=== PATIENT | male | born 1980 | race Caucasian/White ===

== ENCOUNTER 2021-09-09 14:51 | Observation (INO) | payer OTHER, SELFPAY ==
[2021-09-09] VITALS (18 sets, daily range): BP systolic 98–144; BP diastolic 56–100; PULSE 76–101; RESP 17–31; TEMP 36.6–37.4; O2SAT 97–100; BMI 36.1; BMI 35.1
--- NOTE | 2021-09-09 15:03 | DI.CT.S_ITS ---
PROCEDURE: CT HEAD/BRAIN WO CON INDICATIONS: fall, +LOC, hit head TECHNIQUE: Noncontrast 4.5 mm thick angled axial sections acquired from the foramen magnum to the vertex, with coronal and sagittal reformats. For radiation dose reduction, the following was used: automated exposure control, adjustment of mA and/or kV according to patient size. COMPARISON: [facility], CR, XR CHEST 1V, 09/09/2021, 15:07. [facility], CT, CT CERVICAL SPINE WO CON, 09/09/2021, 15:14. FINDINGS: Image quality: Mild streak artifact can be seen through the skull base. CSF spaces: Basal cisterns are patent. No extra-axial fluid collections. Ventricles are normal in size and shape. Brain: No midline shift. No intracranial masses or hemorrhage. [place]aca-white matter interface is normal. Skull and face: Calvarium and visualized facial bones are intact, without suspicious lesions. Sinuses: Visualized sinuses and mastoids are clear. IMPRESSION: No acute intracranial process is seen. No acute intracranial hemorrhage is seen. Dictated by: Tashi Pablo M.D. on 09/09/2021 at 14:45 Approved by: Tashi Pablo M.D. on 09/09/2021 at 14:46
--- NOTE | 2021-09-09 15:03 | DI.CT.S_ITS ---
PROCEDURE: CT CERVICAL SPINE WO CON INDICATIONS: fall, +LOC, hit head TECHNIQUE: Noncontrast 3 mm thick sections acquired from the skull base to the T4 level. Sagittal and coronal reformats were then constructed. For radiation dose reduction, the following was used: automated exposure control, adjustment of mA and/or kV according to patient size. COMPARISON: [facility], CR, SPINE CERVICAL 2 OR 3VW, 09/21/2016, 16:01. [facility], CR, XR CHEST 1V, 09/09/2021, 15:07. [facility], CT, CT HEAD/BRAIN WO CON, 09/09/2021, 15:14. FINDINGS: Image quality: This examination is somewhat limited by quantum mottle artifact. Bones: No fractures or dislocations. Visualized superior ribs are intact. Soft tissues: Prevertebral soft tissues are normal in thickness. No paravertebral hematomas. No apical pneumothoraces. IMPRESSION: Negative for fracture. Dictated by: Tashi Pablo M.D. on 09/09/2021 at 14:44 Approved by: Tashi Pablo M.D. on 09/09/2021 at 14:45
--- NOTE | 2021-09-09 15:03 | DI.RAD.S_ITS ---
PROCEDURE: XR CHEST 1V INDICATIONS: fall, +LOC, hit head TECHNIQUE: One view of the chest was acquired. COMPARISON: None. FINDINGS: Surgical changes and devices: None. Lungs and pleura: Lungs are clear. No pleural effusions or pneumothorax. Mediastinum: Mediastinal contours appear normal. Heart size is normal. Bones and chest wall: No suspicious bony lesions. Overlying soft tissues appear unremarkable. IMPRESSION: No acute cardiopulmonary abnormality. Dictated by: Francisco Baker M.D. on 09/09/2021 at 16:00 Approved by: Francisco Baker M.D. on 09/09/2021 at 16:01
--- NOTE | 2021-09-09 15:05 | ED_ITS ---
HPI - Trauma General Chief Complaint: Trauma Stated Complaint: Fall backward 5 ft,+LOC,no thinners Time Seen by Provider: 09/09/21 14:53 Source: patient and EMS Mode of arrival: EMS History of Present Illness HPI narrative: This is a 41-year-old male who was at work. 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 Patient had a several minute loss of consciousness that was witnessed by coworkers. Patient has been repetitive with EMS. He has complaint of nausea, pain in the back of the head and neck. They did not appreciate any obvious wounds or lacerations. Patient denies chest pain or shortness of breath, he denies any hip or pelvic pain, no pain, numbness or tingling extremities. He has not any vomiting so far. He had 8 mg total Zofran in route. No loss of bowel or bladder control. Patient states he does not recall the event, he does not recall how he arrived here the emergency department. He has trouble remembering the year. He states he should know these things but does not. He is unsure if he takes medications but per EMS takes Provigil some days, no known anticoagulants, patient is unsure if prior surgeries. No known drug allergies documented in the EMR. Patient denies tobacco, he states occasional alcohol but not typically before work, no illicit. Related Data Home Medications Medication Instructions Recorded Confirmed lisinopril PO DAILY 12/23/20 01/30/21 Respironics [employer] 01/30/21 01/30/21 Previous Rx's Medication Instructions Recorded modafinil 200 mg tablet 200 mg PO DAILY #30 tab 07/15/21 Allergies Allergy/AdvReac Type Severity Reaction Status Date / Time No Known Drug Allergies Allergy Verified 01/30/21 14:38 Review of Systems Review of Systems ROS Unobtainable: All systems reviewed & are unremarkable except as noted in HPI and below Patient History Medical History Allergic conjunctivitis and rhinitis (~08/05/16) Chronic right shoulder pain (08/05/16) Depression (08/05/16) Essential hypertension (08/05/16) Excessive daytime sleepiness 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 Obesity (BMI 30-39.9) Obstructive sleep apnea syndrome (2013) Pure hypercholesterolemia (08/05/16) Surgical History H/O splenectomy History of nasal septoplasty Family History Family/Other Dementia Alcohol abuse Father Substance abuse Mother Depression Substance abuse Social History marital status: details: lives in [place] household members: family caregiver/support person: No housing: house occupational status: employed Previous occupational history: [employer] Smoking Status: Never smoker alcohol intake: current substance use type: does not use Smoking Status: Never smoker Exam Narrative Exam Narrative: GEN: C-collar prior to arrival, backboard. Patient appears in mild distress. HEAD: No evidence of trauma, no raccoon/Romero sign. NECK: Nontender, painless range of motion, trachea midline For Nexus criteria, there is no mid line tenderness, distracting injury, positive for altered mental status-patient is repetitive, neuro deficit, recent EtOH. EYES: PERRLA, EOMI ENT: External inspection normal, trachea is midline, TM's are normal no hemotypanum, Nares are clear, no septal hematoma, no dental or oral injury, airway is normal and with normal occlusion, No bony tenderness RESP: Chest is nontender and has symmetric movement, no ecchymosis, breath sounds are normal no crackles, wheezes or rales CVS: Heart sounds are normal, no murmur noted, No JVD. ABG/GI: Nontender, soft, normal bowel sounds, no distention, no organomegaly, pelvic rock is negative NEURO: Alert, patient oriented to self, knows he is at the hospital but does not recall how he got here although he was awake during transport, neuro is grossly intact, sensation and motor is normal all 4 extremities moving, cranial nerves II through XII are intact, GCS is 14 PSYCH: Normal mood and affect SKIN: Intact, warm and dry, no crepitus and without decubitus BACK: No CVA tenderness, no vertebral tenderness, no step-off's, no crepitus EXT: Atraumatic, hips are nontender, no pedal edema, normal color and temperature, normal range of motion of extremities with normal tendon exam, 2+ pulses in all four extremities Initial Vital Signs Initial Vital Signs: Vital Signs Temperature 97.9 F 09/09/21 14:51 Pulse Rate 82 09/09/21 14:51 Respiratory Rate 18 09/09/21 14:51 Blood Pressure 116/61 09/09/21 14:51 Pulse Oximetry 100 09/09/21 14:51 Scores GCS Viola coma scale eye opening: Spontaneous [place] coma scale verbal response: Confused [place] coma scale motor response: Obey commands [place] coma scale total score: 14 Course Orders Ordered: ED Orders 09/09/21 15:03 CT cervical spine wo con Stat CT head/brain wo con Stat Chest [XR chest 1V] Stat 09/09/21 15:16 Complete Blood Count AUTO DIFF Stat Comprehensive Metabolic Panel Stat Ethanol (ETOH) Stat Lipase Stat Partial Thromboplastin Time Stat Prothrombin Time INR Stat 09/09/21 15:54 Type and Screen Stat 09/09/21 18:00 COVID19 -Nasal RAPID/Pre-Proc Stat Acetaminophen (Acetaminophen 325 Mg Tablet) 650 mg PO Q6HR NAVYA Last Admin: 09/09/21 18:27 Dose: 650 mg Documented by: SILVIA Ibuprofen (Ibuprofen 600 Mg Tablet) 600 mg PO Q8HR NAVYA Naloxone HCl (Naloxone 0.4 Mg/Ml Vial) 0.2 mg IV Q2MIN PRN PRN Reason: Opiate Reversal Discontinued Medications Sodium Chloride (Normal Saline 0.9%) 1,000 mls @ 1,000 mls/hr IV BOLUS ONE Stop: 09/09/21 17:17 Last Infusion: 09/09/21 16:47 Dose: 0 mls/hr Documented by: Admin: 09/09/21 15:30 Dose: 1,000 mls/hr Documented by: SILVIA Ketorolac Tromethamine (Ketorolac 30 Mg/Ml Vial) 15 mg IV NOW ONE Stop: 09/09/21 16:27 Last Admin: 09/09/21 16:48 Dose: 15 mg Documented by: DYLAN Reevaluation(s) Reevaluation #1: Reviewed patient's imaging C-spine cleared after imaging patient has good range of motion. He is very dizzy when sat up in the bed. Quite nauseated. He still quite repetitive. His mother is at bedside. Time: 16:56 Consultations Consultation #1: Dr. Chau general surgery accepts for observation for TBI/concussion. Discussed patient able to ambulate but is a little bit off balance. He is quite repetitive still and does not recall activities that have occurred even emergency department. Head CT and imaging were reviewed negative head CT, C- spine. Patient does not have any additional acute neurologic changes in emerge ncy department. Labs were obtained, no major changes. Drug screen has not been obtained but ETOH is negative. Time: 17:50 Vital Signs Vital signs: Vital Signs - 8 hr 09/09/21 14:51 09/09/21 15:12 09/09/21 15:30 Temperature 97.9 F Pulse Rate 82 100 H 76 Respiratory Rate 18 20 Blood Pressure 116/61 144/100 H 102/59 L Pulse Oximetry 100 97 100 09/09/21 15:44 09/09/21 15:45 09/09/21 16:00 Temperature Pulse Rate 81 80 87 Respiratory Rate 20 20 20 Blood Pressure 99/56 L 108/60 Pulse Oximetry 98 98 100 09/09/21 16:01 09/09/21 16:15 09/09/21 16:30 Temperature Pulse Rate 88 82 83 Respiratory Rate 20 20 26 H Blood Pressure 98/65 101/56 L 101/56 L Pulse Oximetry 100 100 100 09/09/21 16:45 09/09/21 17:00 09/09/21 17:15 Temperature Pulse Rate 81 84 89 Respiratory Rate 25 H 23 25 H Blood Pressure 108/56 L 114/62 124/61 Pulse Oximetry 99 100 99 09/09/21 17:30 09/09/21 17:36 09/09/21 17:45 Temperature Pulse Rate 86 101 H 84 Respiratory Rate 17 20 25 H Blood Pressure 119/59 L 127/62 126/61 Pulse Oximetry 99 99 99 MDM - Trauma Lab Data Result diagrams: 09/09/21 15:16 09/09/21 15:16 Labs: Lab Results 09/09/21 09/09/21 09/09/21 Range/Units 15:16 15:16 15:16 WBC 7.9 (4.5-11.0) X10^3/uL RBC 4.52 (4.5-5.9) X10^6/uL Hgb 14.5 (13.5-17.5) g/dL Hct 40.7 L (41-53) % MCV 89.9 (80-100) fL MCH 32.1 (26-34) PG MCHC 35.7 (30-36) % RDW 13.4 (11.6-14.8) % Plt Count 272 (150-400) X10^3/uL Neut % (Auto) 61.4 (50-75) % Lymph % (Auto) 30.8 (25-40) % Christian % (Auto) 6.1 (3-14) % Eos % (Auto) 0.7 L (2-4) % Baso % (Auto) 1.0 (0-2) % Neut # (Auto) 4900 (4389-4130) /uL Lymph # (Auto) 2400 (0072-1992) /uL Christian # (Auto) 500 (0-900) /uL Eos # (Auto) 100 (0-450) /uL Baso # (Auto) 100 (0-100) /uL PT 12.2 (10.1-12.7) SECONDS INR 1.1 (0.9-1.3) APTT 28 (26.4-36.2) SECONDS Sodium 132 L (137-145) mmol/L Potassium 3.6 (3.4-5.1) mmol/L Chloride 102 (98-107) mmol/L Carbon Dioxide 22 (22-32) mmol/L BUN 20 (9-20) mg/dL Creatinine 0.88 (0.66-1.25) mg/dL Estimated GFR > 60 (>60) mL/min BUN/Creatinine Ratio 22.7 H (6-22) Glucose 151 H (70-100) mg/dL Calcium 9.0 (8.4-10.2) mg/dL Total Bilirubin 1.1 (0.2-1.3) mg/dL AST 33 (17-59) IU/L ALT 26 (<50) IU/L Alkaline Phosphatase 75 (38-126) U/L Total Protein 7.5 (6.3-8.2) g/dL Albumin 4.6 (3.5-5.0) g/dL Globulin 2.9 (1.7-4.1) g/dL Albumin/Globulin Ratio 1.6 (1.0-2.8) Lipase 53 (23-300) U/L Urine Color Urine Appearance Urine pH (4.5-8.0) Ur Specific [place] (1.000-1.035) Urine Protein (Negative) Urine Glucose (UA) (Negative) g/dL Urine Ketones (NEGATIVE) Urine Occult Blood (Negative) Urine Nitrate (Negative) Urine Bilirubin (NEGATIVE) Urine Urobilinogen (0.2) E.U./dL Ur Leukocyte Esterase (NEGATIVE) Urine RBC (0-5/HPF) Urine WBC (0-5/HPF) Ur Squamous Epith Cells (0-5/HPF) Urine Bacteria (None) Ur Culture Indicated? U Opiates 300ng/mL cut (Negative) Ur Oxycodone Screen (Negative) Urine Methadone Screen (Negative) Ur Barbiturates Screen (Negative) U Tricyclic Antidepress (Negative) Ur Phencyclidine Scrn (Negative) Ur Amphetamines Screen (Negative) U Methamphetamines Scrn (Negative) Ur MDMA Scrn (Ecstasy) (Negative) U Benzodiazepines Scrn (Negative) Urine Cocaine Screen (Negative) U Marijuana (THC) Screen (Negative) Ethyl Alcohol < 10 ( - 10) mg/dL Blood Type Antibody Screen 09/09/21 09/09/21 09/09/21 Range/Units 15:54 17:42 17:42 WBC (4.5-11.0) X10^3/uL RBC (4.5-5.9) X10^6/uL Hgb (13.5-17.5) g/dL Hct (41-53) % MCV (80-100) fL MCH (26-34) PG MCHC (30-36) % RDW (11.6-14.8) % Plt Count (150-400) X10^3/uL Neut % (Auto) (50-75) % Lymph % (Auto) (25-40) % Christian % (Auto) (3-14) % Eos % (Auto) (2-4) % Baso % (Auto) (0-2) % Neut # (Auto) (0774-1959) /uL Lymph # (Auto) (1899-8689) /uL Christian # (Auto) (0-900) /uL Eos # (Auto) (0-450) /uL Baso # (Auto) (0-100) /uL PT (10.1-12.7) SECONDS INR (0.9-1.3) APTT (26.4-36.2) SECONDS Sodium (137-145) mmol/L Potassium (3.4-5.1) mmol/L Chloride (98-107) mmol/L Carbon Dioxide (22-32) mmol/L BUN (9-20) mg/dL Creatinine (0.66-1.25) mg/dL Estimated GFR (>60) mL/min BUN/Creatinine Ratio (6-22) Glucose (70-100) mg/dL Calcium (8.4-10.2) mg/dL Total Bilirubin (0.2-1.3) mg/dL AST (17-59) IU/L ALT (<50) IU/L Alkaline Phosphatase (38-126) U/L Total Protein (6.3-8.2) g/dL Albumin (3.5-5.0) g/dL Globulin (1.7-4.1) g/dL Albumin/Globulin Ratio (1.0-2.8) Lipase (23-300) U/L Urine Color Yellow Urine Appearance Clear Urine pH 7.5 (4.5-8.0) Ur Specific [place] 1.020 (1.000-1.035) Urine Protein Negative (Negative) Urine Glucose (UA) Negative (Negative) g/dL Urine Ketones Trace H (NEGATIVE) Urine Occult Blood Negative (Negative) Urine Nitrate Negative (Negative) Urine Bilirubin Negative (NEGATIVE) Urine Urobilinogen 0.2 (0.2) E.U./dL Ur Leukocyte Esterase Negative (NEGATIVE) Urine RBC None seen (0-5/HPF) Urine WBC 0-1/hpf (0-5/HPF) Ur Squamous Epith Cells 0-1 /hpf (0-5/HPF) Urine Bacteria None seen (None) Ur Culture Indicated? Cult not indicated U Opiates 300ng/mL cut Negative (Negative) Ur Oxycodone Screen Negative (Negative) Urine Methadone Screen Negative (Negative) Ur Barbiturates Screen Negative (Negative) U Tricyclic Antidepress Negative (Negative) Ur Phencyclidine Scrn Negative (Negative) Ur Amphetamines Screen Negative (Negative) U Methamphetamines Scrn Negative (Negative) Ur MDMA Scrn (Ecstasy) Negative (Negative) U Benzodiazepines Scrn Negative (Negative) Urine Cocaine Screen Negative (Negative) U Marijuana (THC) Screen Negative (Negative) Ethyl Alcohol ( - 10) mg/dL Blood Type O Positive Antibody Screen Negative Imaging Data CT scan - head: Radiologist's Impression: [address] [address] [address] Scan Report Signed Patient: Garry Michel MR#: [id number] : 1980 Acct:[id number] Age/Sex: 41 / M Date of Service: 09/09/21 Loc: ED Accession Number: [id number] ?? Procedure: CT head/brain wo con Ordering Provider: Chanda Narvaez D.O. PROCEDURE:? CT HEAD/BRAIN WO CON ? INDICATIONS:? fall, +LOC, hit head ? TECHNIQUE:? Noncontrast 4.5 mm thick angled axial sections acquired from the foramen magnum to the vertex, with coronal and sagittal reformats.? For radiation dose reduction, the following was used:? automated exposure control, adjustment of mA and/or kV according to patient size.? ? COMPARISON:? [facility], CR, XR CHEST 1V, 09/09/2021, 15:07.? [facility], CT, CT CERVICAL SPINE WO CON, 09/09/2021, 15:14. ? FINDINGS:? Image quality:? Mild streak artifact can be seen through the skull base. ? CSF spaces:? Basal cisterns are patent.? No extra-axial fluid collections.? Ventricles are normal in size and shape.? ? Brain:? No midline shift.? No intracranial masses or hemorrhage.? [place]aca-white matter interface is normal.? ? Skull and face:? Calvarium and visualized facial bones are intact, without suspicious lesions.? ? Sinuses:? Visualized sinuses and mastoids are clear.? IMPRESSION:? ? No acute intracranial process is seen.? ? No acute intracranial hemorrhage is seen.? ? ? Dictated by: Tashi Pablo M.D. on 09/09/2021 at 14:45 ? ? Approved by: Tashi Pablo M.D. on 09/09/2021 at 14:46?? CT - cervical spine: Radiologist's Impression: [address] [address] [address] Scan Report Signed Patient: Garry Michel MR#: [id number] : 1980 Acct:[id number] Age/Sex: 41 / M Date of Service: 09/09/21 Loc: ED Accession Number: [id number] ?? Procedure: CT cervical spine wo con Ordering Provider: Chanda Narvaez D.O. PROCEDURE:? CT CERVICAL SPINE WO CON ? INDICATIONS:? fall, +LOC, hit head ? TECHNIQUE:? Noncontrast 3 mm thick sections acquired from the skull base to the T4 level.? Sagittal and coronal reformats were then constructed.? For radiation dose reduction, the following was used:? automated exposure control, adjustment of mA and/or kV according to patient size.? ? COMPARISON:? [facility], CR, SPINE CERVICAL 2 OR 3VW, 09/21/2016, 16:01.? [facility], CR, XR CHEST 1V, 09/09/2021, 15:07.? [facility], CT, CT HEAD/BRAIN WO CON, 09/09/2021, 15:14. ? FINDINGS:? Image quality:? This examination is somewhat limited by quantum mottle artifact.? ? Bones:? No fractures or dislocations.? Visualized superior ribs are intact.? ? Soft tissues:? Prevertebral soft tissues are normal in thickness.? No paravertebral hematomas.? No apical pneumothoraces.? ? ? IMPRESSION:? Negative for fracture. ? ? ? Dictated by: Tashi Pablo M.D. on 09/09/2021 at 14:44 ? ? Approved by: Tashi Pablo M.D. on 09/09/2021 at 14:45?? Chest x-ray: Radiologist's Impression: Garry Michel??41??M??1980 ? Allergy/Adv: No Known Drug Allergies (More??) Close Head CT (Signed) Tashi Pablo - 09/09/21 Chest X-Ray (Signed) Francisco Baker - 09/09/[address] (Signed) Tashi Pablo - 09/09/21 Radiology - Historical 08/05/16 Launch?Image [address] [address] XRay Report Signed Patient: Garry Michel MR#: [id number] : 1980 Acct:[id number] Age/Sex: 41 / M Date of Service: 09/09/21 Loc: ED Accession Number: [id number] ?? Procedure: XR chest 1V Ordering Provider: Chanda Narvaez D.O. PROCEDURE:? XR CHEST 1V ? INDICATIONS:? fall, +LOC, hit head ? TECHNIQUE:? One view of the chest was acquired.? ? COMPARISON:? None. ? FINDINGS:? ? Surgical changes and devices:? None.? ? Lungs and pleura:? Lungs are clear.? No pleural effusions or pneumothorax.? ? Mediastinum:? Mediastinal contours appear normal.? Heart size is normal.? ? Bones and chest wall:? No suspicious bony lesions.? Overlying soft tissues appear unremarkable.? ? IMPRESSION:? No acute cardiopulmonary abnormality. ? ? ? Dictated by: Francisco Baker M.D. on 09/09/2021 at 16:00 ? ? Approved by: Francisco Baker M.D. on 09/09/2021 at 16:01?? MDM Narrative Medical decision making narrative: This is a 41-year-old male who comes in with loss of consciousness after striking his head on a stair and ship deck. Activated as modified trauma. Patient had a witnessed loss of consciousness for several minutes, he continues to be repetitive several hours after the injury and still does not recall the events. Head CT, C-spine are negative, patient is nontender on exam with normal range of motion, chest x-ray is negative, labs do not show any major changes. Patient was able to urinate in the department urine drug screen was ordered. Patient is able to ambulate but does need to have someone hold onto him. Plan for observation with general surgery. Discharge Plan Departure Patient Disposition: Admitted as Observation Clinical Impression: Concussion Qualifiers: Encounter type: initial encounter Loss of consciousness presence/duration: with LOC of 30 min or less Qualified Code(s): S06.0X1A - Concussion with loss of consciousness of 30 minutes or less, initial encounter Admit Date/Time: 09/09/21 17:50 Admit Provider: Twila Chau
[2021-09-09] MEDS: SODIUM CHLORIDE 0.9% 1,000 ML 1000 ML IV (15:30)
[2021-09-09 15:45] LABS: Add Manual Diff / Slide Review NO; Basophils Absolute Auto 100 /uL (0-100); Eosinophils Absolute Auto 100 /uL (0-450); Eosinophils Percent Auto 0.7 % (2-4); Hematocrit 40.7 % (41-53); Hemoglobin 14.5 g/dL (13.5-17.5); Lymphocytes Absolute Auto 2400 /uL (1100-4500); Lymphocytes Percent Auto 30.8 % (25-40); Mean Corpuscular HGB Conc 35.7 % (30-36); Mean Corpuscular Hemoglobin 32.1 PG (26-34); Mean Corpuscular Volume 89.9 fL (80-100); Monocytes Absolute Auto 500 /uL (0-900); Monocytes Percent Auto 6.1 % (3-14); Neutrophils Absolute Auto 4900 /uL (1500-7000); Neutrophils Percent Auto 61.4 % (50-75); Platelet Count 272 X10^3/uL (150-400); Red Blood Cell Count 4.52 X10^6/uL (4.5-5.9); Red Cell Distribution Width 13.4 % (11.6-14.8); White Blood Cell Count 7.9 X10^3/uL (4.5-11.0)
[2021-09-09 15:47] LABS: INR 1.1 (0.9-1.3); Prothrombin Time 12.2 SECONDS (10.1-12.7)
[2021-09-09 15:49] LABS: PTT Partial Thromboplastin Tim 28 SECONDS (26.4-36.2)
[2021-09-09 15:53] LABS: Alanine Aminotransferase 26 IU/L (<50); Albumin 4.6 g/dL (3.5-5.0); Albumin Globulin Ratio 1.6 (1.0-2.8); Alkaline Phosphatase 75 U/L (38-126); Aspartate Aminotransferase 33 IU/L (17-59); BUN Creatinine Ratio 22.7 (6-22); Bilirubin Total 1.1 mg/dL (0.2-1.3); Blood Urea Nitrogen 20 mg/dL (9-20); Carbon Dioxide 22 mmol/L (22-32); Chloride 102 mmol/L (98-107); Estimated Glomerular Filt Rate > 60 mL/min (>60); Ethanol (ETOH) < 10 mg/dL; Globulin 2.9 g/dL (1.7-4.1); Glucose 151 mg/dL (70-100); HEMOLYSIS < 15 (0-50); Lipase 53 U/L (23-300); Potassium 3.6 mmol/L (3.4-5.1); Sodium 132 mmol/L (137-145); Total Protein 7.5 g/dL (6.3-8.2)
[2021-09-09] MEDS: KETOROLAC 30 MG/ML VIAL 15 MG IV (16:48)
--- NOTE | 2021-09-09 18:01 | PC.NURSE ---
pt ambulated to bathroom. gait unsteady, slightly wobbly. pt state he feels better walking around but he is slightly dizzy. after ambulating to bathroom and collecting specimen. pt forgot he did this within 15min. pt is still very forgetful and repetitive.
[2021-09-09 18:14] LABS: UR Morphine/Opiate cutoff 300 Negative (Negative); Ur Creatinine Normal (Normal); Ur Specific Gravity Normal (Normal); Urine Amphetamines Negative (Negative); Urine Cocaine Negative (Negative); Urine Methamphetamines Negative (Negative); Urine Phencyclidine Negative (Negative); Urine Tetrahydrocannabinol Negative (Negative); Urine pH Normal (Normal)
[2021-09-09 18:15] LABS: Urine Barbiturates Negative (Negative); Urine Benzodiazepines Negative (Negative); Urine MDMA Negative (Negative); Urine Methadone Negative (Negative); Urine Oxycodone Negative (Negative); Urine Tricyclic Antidepressant Negative (Negative)
[2021-09-09 18:22] LABS: COVID19 -Nasal RAPID Negative (Negative)
[2021-09-09] MEDS: ACETAMINOPHEN 325 MG TABLET 650 MG PO ×2 (18:27→23:05)
[2021-09-09 18:38] LABS: Appearance Urine UA CLEAR; Bilirubin Urine UA NEGATIVE (NEGATIVE); Color Urine UA YELLOW; Glucose Urine UA NEGATIVE (Negative); Ketones Urine UA TRACE (NEGATIVE); Leukocyte Esterase Urine UA NEGATIVE (NEGATIVE); Nitrite Urine UA NEGATIVE (Negative); Occult Blood Urine UA NEGATIVE (Negative); Protein Urine UA NEGATIVE (Negative); Urobilinogen Urine UA 0.2 E.U./dL (0.2); pH Urine UA 7.5 (4.5-8.0)
[2021-09-09 18:49] LABS: Bacteria Urine None Seen; RBC Urine None Seen (0-5/HPF); Squamous Epithelial Cell Urine 0-1 /HPF (0-5/HPF); WBC Urine 0-1/HPF (0-5/HPF)
[2021-09-09 18:50] LABS: Culture Indicated Urine Cult Not Indicated
[2021-09-09] MEDS: IBUPROFEN 600 MG TABLET PO (22:41)
[2021-09-10] VITALS (8 sets, daily range): BP systolic 101–110; BP diastolic 51–75; PULSE 66–72; RESP 16–17; TEMP 36.3–36.9; O2SAT 96–99
[2021-09-10] MEDS: IBUPROFEN 600 MG TABLET PO (05:22)
[2021-09-10] MEDS: ACETAMINOPHEN 325 MG TABLET 650 MG PO ×3 (05:22→18:04)
--- NOTE | 2021-09-10 08:28 | PM.HP.1 ---
History of Present Illness History of Present Illness Date Patient Seen: 09/10/21 Time Patient Seen: 08:28 Date of Onset of Symptoms: 09/09/21 Chief complaint: Fall backward 5 ft,+LOC,no thinners Narrative: Patient still confused, has short term memory loss. Complains of MENDOZA, no nausea. Main complaint is frustration with memory. 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 Obesity (BMI 30-39.9) Obstructive sleep apnea syndrome (2012) Pure hypercholesterolemia (08/05/16) Surgical History H/O splenectomy History of nasal septoplasty Family & Social History Family History Family/Other Dementia Alcohol abuse Father Substance abuse Mother Depression Substance abuse Social History: household members family caregiver/support person No Safety & Behavioral: Feels Safe in Current Yes Environment Been Physically Hurt or No Threatened By a Person Tobacco & Substance use: Smoking Status Never smoker alcohol intake current Substance Use Type does not use Meds Home Medications and Allergies Home Medications Medication Instructions Recorded Confirmed Type lisinopril 40 mg PO DAILY 12/23/20 09/09/21 History Respironics [facility]Station 01/30/21 09/09/21 History modafinil 200 mg tablet 200 mg PO DAILY #30 tab 07/15/21 09/09/21 Rx Allergies Allergy/AdvReac Type Severity Reaction Status Date / Time No Known Drug Allergies Allergy Verified 01/30/21 14:38 Review of Systems Review of Systems ROS: Yes All systems reviewed with the patient and are negative except as otherwise documented Exam Vital Signs (past 8 hours): - 09/10/21 05:22 09/10/21 07:54 Temperature 98.2 F Pulse Rate 70 Respiratory Rate 17 Blood Pressure 101/51 L Pulse Oximetry 98 96 Oxygen Delivery Method Room Air Oxygen Flow Rate 0 Const General: cooperative and anxious Nutritional Appearance: average body habitus Orientation: alert, awake and oriented x3 HENMT Head: normal to inspection, normocephalic and atraumatic Eyes General: appearance normal, both eyes and all related structures Sclera: sclerae normal Neck Neck: full ROM and trachea midline Chest Chest: normal inspection of the chest Resp Effort & Inspection: normal respiratory effort and able to speak in complete sentences Cardio Rate: regular rate Rhythm: regular rhythm GI Inspection: normal to inspection Palpation: soft Skin General: no rashes or lesions noted and turgor normal Neuro General: patient alert, patient awake and patient oriented x3 Cranial Nerves: tongue midline Cognition: abnormal cognition (short term memory loss and repetitive questions) Speech: speech normal Gait: other (not seen.) Motor: muscle tone normal throughout Extrem General: full ROM Psych Appearance: other (sleepy appearance) Speech and Movement: speech and movement normal Mood: anxious mood Affect: normal affect Attitude: cooperative Thought Process: perseverating Judgment: limited Objective Labs Result Diagrams: 09/09/21 15:16 09/09/21 15:16 Labs: Laboratory Results - last 24 hr 09/09/21 09/09/21 09/09/21 15:16 15:16 15:16 WBC 7.9 RBC 4.52 Hgb 14.5 Hct 40.7 L MCV 89.9 MCH 32.1 MCHC 35.7 RDW 13.4 Plt Count 272 Neut % (Auto) 61.4 Lymph % (Auto) 30.8 Toole % (Auto) 6.1 Eos % (Auto) 0.7 L Baso % (Auto) 1.0 Neut # (Auto) 4900 Lymph # (Auto) 2400 Toole # (Auto) 500 Eos # (Auto) 100 Baso # (Auto) 100 PT 12.2 INR 1.1 APTT 28 Sodium 132 L Potassium 3.6 Chloride 102 Carbon Dioxide 22 BUN 20 Creatinine 0.88 Estimated GFR > 60 BUN/Creatinine Ratio 22.7 H Glucose 151 H Calcium 9.0 Total Bilirubin 1.1 AST 33 ALT 26 Alkaline Phosphatase 75 Total Protein 7.5 Albumin 4.6 Globulin 2.9 Albumin/Globulin Ratio 1.6 Lipase 53 Urine Color Urine Appearance Urine pH Ur Specific [place] Urine Protein Urine Glucose (UA) Urine Ketones Urine Occult Blood Urine Nitrate Urine Bilirubin Urine Urobilinogen Ur Leukocyte Esterase Urine RBC Urine WBC Ur Squamous Epith Cells Urine Bacteria Ur Culture Indicated? U Opiates 300ng/mL cut Ur Oxycodone Screen Urine Methadone Screen Ur Barbiturates Screen U Tricyclic Antidepress Ur Phencyclidine Scrn Ur Amphetamines Screen U Methamphetamines Scrn Ur MDMA Scrn (Ecstasy) U Benzodiazepines Scrn Urine Cocaine Screen U Marijuana (THC) Screen Ethyl Alcohol < 10 SARS-CoV-2 (PCR) Blood Type Antibody Screen 09/09/21 09/09/21 09/09/21 15:54 17:42 17:42 WBC RBC Hgb Hct MCV MCH MCHC RDW Plt Count Neut % (Auto) Lymph % (Auto) Toole % (Auto) Eos % (Auto) Baso % (Auto) Neut # (Auto) Lymph # (Auto) Toole # (Auto) Eos # (Auto) Baso # (Auto) PT INR APTT Sodium Potassium Chloride Carbon Dioxide BUN Creatinine Estimated GFR BUN/Creatinine Ratio Glucose Calcium Total Bilirubin AST ALT Alkaline Phosphatase Total Protein Albumin Globulin Albumin/Globulin Ratio Lipase Urine Color Yellow Urine Appearance Clear Urine pH 7.5 Ur Specific [place] 1.020 Urine Protein Negative Urine Glucose (UA) Negative Urine Ketones Trace H Urine Occult Blood Negative Urine Nitrate Negative Urine Bilirubin Negative Urine Urobilinogen 0.2 Ur Leukocyte Esterase Negative Urine RBC None seen Urine WBC 0-1/hpf Ur Squamous Epith Cells 0-1 /hpf Urine Bacteria None seen Ur Culture Indicated? Cult not indicated U Opiates 300ng/mL cut Negative Ur Oxycodone Screen Negative Urine Methadone Screen Negative Ur Barbiturates Screen Negative U Tricyclic Antidepress Negative Ur Phencyclidine Scrn Negative Ur Amphetamines Screen Negative U Methamphetamines Scrn Negative Ur MDMA Scrn (Ecstasy) Negative U Benzodiazepines Scrn Negative Urine Cocaine Screen Negative U Marijuana (THC) Screen Negative Ethyl Alcohol SARS-CoV-2 (PCR) Blood Type O Positive Antibody Screen Negative 09/09/21 18:00 WBC RBC Hgb Hct MCV MCH MCHC RDW Plt Count Neut % (Auto) Lymph % (Auto) Toole % (Auto) Eos % (Auto) Baso % (Auto) Neut # (Auto) Lymph # (Auto) Toole # (Auto) Eos # (Auto) Baso # (Auto) PT INR APTT Sodium Potassium Chloride Carbon Dioxide BUN Creatinine Estimated GFR BUN/Creatinine Ratio Glucose Calcium Total Bilirubin AST ALT Alkaline Phosphatase Total Protein Albumin Globulin Albumin/Globulin Ratio Lipase Urine Color Urine Appearance Urine pH Ur Specific [place] Urine Protein Urine Glucose (UA) Urine Ketones Urine Occult Blood Urine Nitrate Urine Bilirubin Urine Urobilinogen Ur Leukocyte Esterase Urine RBC Urine WBC Ur Squamous Epith Cells Urine Bacteria Ur Culture Indicated? U Opiates 300ng/mL cut Ur Oxycodone Screen Urine Methadone Screen Ur Barbiturates Screen U Tricyclic Antidepress Ur Phencyclidine Scrn Ur Amphetamines Screen U Methamphetamines Scrn Ur MDMA Scrn (Ecstasy) U Benzodiazepines Scrn Urine Cocaine Screen U Marijuana (THC) Screen Ethyl Alcohol SARS-CoV-2 (PCR) Negative Blood Type Antibody Screen Assessment & Plan Assessment & Plan narrative: Trauma, s/p fall with moderate concussion Plan: OT and PT evaluation and treatment. Mom lives at home with him. No driving or work until cleared by PCP (likely 2-3 weeks) COVID-19 COVID-19 status: Negative Time Spent With Patient Time with patient: 30 to 49 minutes with 50% spent counseling/coordinating care Critical Care time: I spent a total of [] minutes of critical care time on this patient's care today; this time is exclusive of procedural time. Quality VTE Deep Vein Thrombosis/Pulmonary Embolism Present on Admission: No
[2021-09-10] MEDS: NAPROXEN 250 MG TABLET 500 MG PO (09:04)
[2021-09-10] MEDS: lisinopriL 20 MG TABLET 40 MG PO (09:05)
--- NOTE | 2021-09-10 10:22 | PT.IIE ---
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 Obesity (BMI 30-39.9) Obstructive sleep apnea syndrome (2012) Pure hypercholesterolemia (08/05/16) Physical Therapy Inpatient Evaluation/Re-Eval M1 PT/OT-IP Prior Functional Status Start: 09/10/21 10:15 Freq: NEEDED Status: Active Protocol: Document 09/10/21 10:16 [facility] (Rec: 09/10/21 10:22 [facility] [id number]) Medical Review Prior Functional Status Medical History Reviewed Yes Diet/Fluid Consistency Regular Communication WNL Mobility and Gait indep Activities of Daily Living and IADL's 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 nd dgt (10y.o.) live w/him M2 PT-IP Current Condition Start: 09/10/21 10:15 Freq: NEEDED Status: Active Protocol: Document 09/10/21 10:16 [facility] (Rec: 09/10/21 10:22 [facility] [id number]) Physical Therapy Current Condition Current Condition Evaluation Date 09/10/21 Treatment Diagnosis fell w/LOC, neck and head pain M3 PT-IP Subjective Start: 09/10/21 10:15 Freq: NEEDED Status: Active Protocol: Document 09/10/21 10:16 [facility] (Rec: 09/10/21 10:22 [facility] [id number]) Subjective Physical Therapy Visit Type Type Initial Evaluation Visit Start Time 09:25 Visit Stop Time 09:55 Total Visit Minutes 30 Number of ENGINEERING PSYCHOLOGIST Visits 0 Physical Therapy Visit Comments Patient Comments no concerns w/mobility ahs been walking halls indp Therapy Pain Assessment Pain When Pain Assessed At Rest Pain Present Pain Present Pain Reported Location neck Intensity 4 Scale Used Numeric (0 - 10) M4 PT-IP Mobility and Gait Start: 09/10/21 10:15 Freq: NEEDED Status: Active Protocol: Document 09/10/21 10:16 [facility] (Rec: 09/10/21 10:22 [facility] [id number]) PT-Bed Mobility Assessment Supine to Sit Supine to Sit Independent PT-Transfer Assessment Sit to and From Stand Sit to and from Stand Independent Equipment Transfer Assistive Device Gait Belt Transfer Ability Level of Assist Independent Gait Assessment Gait Gait Assistance Required: Independent Distance (Feet) 200 Able to Maintain Weight Bearing Status Yes During Gait Assistive Devices Assistive Device Gait Belt Gait Deviations General Gait Pattern Within Normal Limits Comments Gait Comments all mobility indep for pt. PT-Balance Assessment Sitting Balance and Reactions Static Sitting Balance Ability Normal Dynamic Sitting Balance Ability Normal Standing Balance and Reactions Static Standing Balance Ability Normal Dynamic Standing Balance Ability Normal Device Used none Balance Tests Single Limb Standing >30 sec B Rasmussen Balance Test Score 56/56 Query Text:Score Comments Other Balance Tests/Deviations/Treatment parts of DGI & FGA done except : stairs and obstacles (no issues w/turn and stop, head turns (vertical & horizontal), or change in gait speed, EC walking, walking backwards) M5 PT-IP Objective Assessments Start: 09/10/21 10:15 Freq: NEEDED Status: Active Protocol: Document 09/10/21 10:16 [facility] (Rec: 09/10/21 10:22 [facility] [id number]) Orientation Orientation/Cognition Level of Alertness Alert Language Function Ability No Deficits Noted Safety Awareness Understands Safety Issues Memory Description Short Term Impaired Comments pt having trouble remembering yesterday and notes he has repeated things in his texts Gross Range of Motion Lower Extremity ROM Assessment Within Functional Limits Strength Lower Extremity Strength Assessment Within Functional Limits Coordination Assessment Gross Coordination Gross Coordination WNL Sensation Assessment Sensation Gross Sensation WNL Muscle Tone Muscle Tone WNL Yes M6 PT-IP Treatment Start: 09/10/21 10:15 Freq: NEEDED Status: Active Protocol: Document 09/10/21 10:16 [facility] (Rec: 09/10/21 10:22 [facility] [id number]) Physical Therapy Treatment Education Education Provided Safety M7 PT-IP Assessment and Plan Start: 09/10/21 10:15 Freq: NEEDED Status: Active Protocol: Document 09/10/21 10:16 [facility] (Rec: 09/10/21 10:22 [facility] [id number]) PT Summary Assessment and Plan Potential Rehabilitation Potential Excellent Status of Condition at Evaluation Stable Summary Impairments Pain Assessment Summary Pt presents w/fall at work where he fell backwards and hit his head. Imaging neg for fracture or brain bleed. He has concussion symptoms and was encouraged to slowly progress w/activity at home. He showed no deficits in balance and is cleared to be indep in room and hallway. Encouraged to use call light if feels unstable or dizzy. Frequency of Treatment Frequency Of Treatment Discharge Recommendations To Nursing Amount of Assist Needed Independent Discharge Recommendations PT Discharge Recommendations Home,Outpatient PT Other Discharge Recommendations PT for neck pain and head pain Transportation Needs at Discharge Private Vehicle
--- NOTE | 2021-09-10 11:28 | OT.IP.EVAL ---
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 Obesity (BMI 30-39.9) Obstructive sleep apnea syndrome (2012) Pure hypercholesterolemia (08/05/16) Surgical History (Last Reviewed 09/10/21 @ 08:29 by Twila Chau MD) H/O splenectomy History of nasal septoplasty Occupational Therapy Inpatient Evaluation/Re-Eval M1 PT/OT-IP Prior Functional Status Start: 09/10/21 10:15 Freq: NEEDED Status: Active Protocol: Document 09/10/21 10:53 [facility] (Rec: 09/10/21 17:11 [facility] [id number]) Medical Review Prior Functional Status Medical History Reviewed Yes Diet/Fluid Consistency Regular Communication WNL Mobility and Gait indep Activities of Daily Living and IADL's 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 M2 OT-IP Current Condition Start: 09/10/21 16:50 Freq: Status: Active Protocol: Document 09/10/21 10:53 [facility] (Rec: 09/10/21 17:11 [facility] [id number]) Occupational Therapy Current Condition Current Condition Evaluation Date 09/10/21 Treatment Diagnosis Concussion due to fall Diagnosis Onset Date 09/09/21 M3 OT- IP Subjective and Pain Start: 09/10/21 16:50 Freq: Status: Active Protocol: Document 09/10/21 10:53 [facility] (Rec: 09/10/21 17:11 [facility] [id number]) OT- Subjective Occupational Therapy Visit Type Type Initial Evaluation Visit Start Time 10:53 Visit Stop Time 11:28 Total Visit Minutes 35 Occupational Therapy Visit Comments Patient Comments Pt agreed to do OT eval. Patient/Caregiver Goals TO go home OT Pain Assessment Pain When Pain Assessed At Rest Pain Present Pain Present Denied Pain M4 OT- IP ADL's Start: 09/10/21 16:50 Freq: Status: Active Protocol: Document 09/10/21 10:53 [facility] (Rec: 09/10/21 17:11 [facility] [id number]) OT OBY-Phlz-Leoiknf General Evaluation Self-Feeding Ability Independent OT ADL-Grooming General Evaluation Grooming Ability Independent OT ADL-Oral Care General Eval Oral Care Ability Independent OT ADL-Dressing General Eval Lower Body Dressing Ability Independent OT ADL-Toileting General Evaluation Toileting Ability Independent OT ADL-Bathing Comments OT Bathing Comments not performed M5 OT- IP IADL's Start: 09/10/21 16:50 Freq: Status: Active Protocol: Document 09/10/21 10:53 [facility] (Rec: 09/10/21 17:11 [facility] [id number]) OT-Instrumental Activities of Daily Living Home Safety Awareness Home Safety Comments Pt having difficulty with short term memory and problem solving and would be best to have his mother home with him initially for the next few days to provide supervision as needed. M6 OT- IP Functional Cognition Start: 09/10/21 16:50 Freq: Status: Active Protocol: Document 09/10/21 10:53 [facility] (Rec: 09/10/21 17:11 [facility] [id number]) Cognitive Factors Limiting Selfcare Function Cognitive Ability Level of Alertness Alert Patient Orientation Name,Age,Birthday,Month,Date, Year,Day of Week,Place, Situation Attention Span Ability Capable of Focused Attention, Capable of Sustained Attention Ability to Follow Commands Able to Follow One Step Commands Memory Description Short Term Impaired,Working Impaired Problem Solving Ability Needs Assist to Identify Solutions Executive Function Ability Unable to Organize Plans, Unable to Remember Details Cognitive Tests SLUMS Pt scored 20/30 on the SLUMS which implies mild neuro cognitive disorders which is probably affected by his concussion. Cognitive Comments Cognitive Assessment Comments Pt scored 147 seconds on Kirby Making B which implies severe impairment for visual attention, speed of processing , task switching, executive functioning, and mental flexibility. Pt's score most likely affected by his head injury. Pt realizes that he is thinking more slowly. OT- Vision and Hearing OT- Hearing Assessment OT- Hearing Assessment WFL OT- Vision Assessment Visual Acuity Glasses For Reading Visual Attentiveness WFL Occular Pursuits WFL Visual Convergence WFL Visual Talley WFL M7 OT- IP Mobility and Balance Start: 09/10/21 16:50 Freq: Status: Active Protocol: Document 09/10/21 10:53 [facility] (Rec: 09/10/21 17:11 [facility] [id number]) OT- Bed Mobility Assessment Supine to Sit Supine to Sit Assist Independent Sit to Supine Sit to Supine Assist Independent OT-Transfer Assessment Sit to and From Stand Sit to and from Stand Independent Transfers Transfer Ability Independent Technique Transfer Destination Bed Comments Mobility Comments Pt completely independent for all mobility needs. OT- Balance Assessment Sitting Balance and Reactions Static Sitting Balance Ability Normal Dynamic Sitting Balance Ability Normal Standing Balance and Reactions Static Standing Balance Ability Normal Dynamic Standing Balance Ability Normal M8 OT- IP Objective Assessments Start: 09/10/21 16:50 Freq: Status: Active Protocol: Document 09/10/21 10:53 [facility] (Rec: 09/10/21 17:11 [facility] [id number]) OT Gross Range of Motion Upper Extremity Range of Motion Assessment Within Functional Limits OT Strength Upper Extremity Strength Assessment Within Functional Limits OT- Coordination Assessment Upper Extremity Finger to Nose Test Within Functional Limits OT-Muscle Tone Assessment Muscle Tone WNL Yes M9 OT- IP Assessment and Plan Start: 09/10/21 16:50 Freq: Status: Active Protocol: Document 09/10/21 10:53 [facility] (Rec: 09/10/21 17:11 [facility] [id number]) OT Summary Assessment and Plan Potential Rehabilitation Potential Excellent Analytic Complexity at Evaluation Moderate Summary OT Impairments Functional Cognition Progress Towards Goals Progressing Toward Goals Assessment Summary Pt present with concussion after falling backwards and hitting his head on a step. Pt scored 20/30 on the SLUMS and 147 for Kirby Making Part B which implies having cognitive deficits and strongly suggested not to drive at this time and to have his mother home to provide a supervision and assist as needed while he recovers. Goals Bathing Goal Independent OT-Other Goals Pt to have good awareness to take it easy initially and not overdo things at home while recovering from his concussion . Days to Meet Goals 1 Frequency of Treatment Frequency Of Treatment Once a Day Treatment Plan OT Treatment Plan Functional Cognition Training, Discharge Planning Discharge Recommendations OT Discharge Recommendations Home with 24/7 Assist Available Other Discharge Recommendations If pt does not improve cognitively possible outpt END MAKER or OT may be needed. Transportation Needs at Discharge Private Vehicle
--- NOTE | 2021-09-10 16:01 | CM.DANOTE ---
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 According to discussion w/OT Felicia, patient is slowly improving cognitively but would benefit from supervision upon DC to monitor during initial period of recovery Met w/patient and his mom Chuck. Patient lives in [place] with his 10 yo Mickie, who is currently staying with her mom in [place]. Mom Chuck works at [employer] but has arranged time off until next week in order to help patient and dtr during patient's recovery Patient aware he has short term memory loss; states it's weird he looks back at texts sent to friends today and cannot remember sending them Plan: DC home w/family when cleared by general surgery, patient will have his mom to monitor his recovery for at least 72 hrs. No needs identified from this ANUEL Beltran Discharge Planning/Care Management CM Discharge Assessment Start: 09/10/21 15:57 Freq: Status: Active Protocol: Document 09/10/21 15:57 [facility] (Rec: 09/10/21 16:01 [facility] [id number]) Discharge Planning Assessment Assigned Routing Clerk ANUEL Carter DPOA/Assigned Designee Name javon Matute Contact Information [phone] Advance Directives? No History Provided By Patient,Parents Prior Living Arrangements House Household Members family,children Type of transportation used prior to Drives own vehicle admit Independent with ADL's Yes Is patient alert and oriented? Yes Barriers to Discharge No Comment Home w/mom Chuck to help out while patient recovers. 10 yo Mickie will be with her mom until end o weekend Discharge Plan Home Transportation Arrangement Family Referrals Initiated None needed
[2021-09-11] MEDS: ACETAMINOPHEN 325 MG TABLET 650 MG PO ×2 (00:01→05:25)
[2021-09-11 05:20] VITALS: BP 100/60; PULSE 89; RESP 14; TEMP 36.4; O2SAT 98
[2021-09-11 07:50] VITALS: BP 120/76; PULSE 76; RESP 16; TEMP 36.5; O2SAT 97
--- NOTE | 2021-09-11 09:12 | OT.IP.TRT ---
Current Diagnoses Concussion with loss of consciousness of unspecified duration, initial encounter (09/09/21) Occupational Therapy Treatment Note M2 OT-IP Current Condition Start: 09/10/21 16:50 Freq: Status: Discharge Protocol: Document 09/10/21 10:53 [facility] (Rec: 09/10/21 17:11 [facility] [id number]) Occupational Therapy Current Condition Current Condition Evaluation Date 09/10/21 Treatment Diagnosis Concussion due to fall Diagnosis Onset Date 09/09/21 M3 OT- IP Subjective and Pain Start: 09/10/21 16:50 Freq: Status: Discharge Protocol: Document 09/11/21 09:12 [facility] (Rec: 09/11/21 12:42 [facility] [id number]) OT- Subjective Occupational Therapy Visit Type Visit Start Time 09:12 Visit Stop Time 09:39 Total Visit Minutes 27 Occupational Therapy Visit Comments Patient Comments Pt agreed to do cognitive assessments again. Patient/Caregiver Goals To go home. OT Pain Assessment Pain When Pain Assessed At Rest Pain Present Pain Present Pain Reported Location head Description Pressure M4 OT- IP ADL's Start: 09/10/21 16:50 Freq: Status: Discharge Protocol: Document 09/10/21 10:53 [facility] (Rec: 09/10/21 17:11 [facility] [id number]) OT TBO-[place] General Evaluation Self-Feeding Ability Independent OT ADL-Grooming General Evaluation Grooming Ability Independent OT ADL-Oral Care General Eval Oral Care Ability Independent OT ADL-Dressing General Eval Lower Body Dressing Ability Independent OT ADL-Toileting General Evaluation Toileting Ability Independent OT ADL-Bathing Comments OT Bathing Comments not performed M5 OT- IP IADL's Start: 09/10/21 16:50 Freq: Status: Discharge Protocol: Document 09/10/21 10:53 [facility] (Rec: 09/10/21 17:11 [facility] [id number]) OT-Instrumental Activities of Daily Living Home Safety Awareness Home Safety Comments Pt having difficulty with short term memory and probleming solving and would be best to have his mother home with him initially for the next few days to provide supervision if needed. M6 OT- IP Functional Cognition Start: 09/10/21 16:50 Freq: Status: Discharge Protocol: Document 09/11/21 09:12 [facility] (Rec: 09/11/21 12:42 [facility] [id number]) Cognitive Factors Limiting Selfcare Function Cognitive Ability Level of Alertness Alert Patient Orientation Name,Age,Birthday,Month,Date, Year,Day of Week,Place, Situation Attention Span Ability Capable of Focused Attention, Capable of Sustained Attention Ability to Follow Commands Able to Follow Multi-Step Commands Memory Description Short Term Impaired,Working Impaired Problem Solving Ability Needs Assist to Identify Solutions Executive Function Ability Unable to Organize Plans, Unable to Remember Details Cognitive Tests SLUMS Pt scored 19/30 today on the SLUMS. Pt's main issues were with short term memory needs. Pt still havin difficulty to subtract numbers in his head as well. Cognitive Comments Cognitive Assessment Comments Pt scored 69 seconds on [employer] which implies normal but not perfect for visual attention, speed of processing, task swiching, executive functioning, and mental flexility. M7 OT- IP Mobility and Balance Start: 09/10/21 16:50 Freq: Status: Discharge Protocol: Document 09/10/21 10:53 [facility] (Rec: 09/10/21 17:11 [facility] [id number]) OT- Bed Mobility Assessment Supine to Sit Supine to Sit Assist Independent Sit to Supine Sit to Supine Assist Independent OT-Transfer Assessment Sit to and From Stand Sit to and from Stand Independent Transfers Transfer Ability Independent Technique Transfer Destination Bed Comments Mobility Comments Pt completely independent for all mobility needs. OT- Balance Assessment Sitting Balance and Reactions Static Sitting Balance Ability Normal Dynamic Sitting Balance Ability Normal Standing Balance and Reactions Static Standing Balance Ability Normal Dynamic Standing Balance Ability Normal M8 OT- IP Objective Assessments Start: 09/10/21 16:50 Freq: Status: Discharge Protocol: Document 09/10/21 10:53 [facility] (Rec: 09/10/21 17:11 [facility] [id number]) OT Gross Range of Motion Upper Extremity Range of Motion Assessment Within Functional Limits OT Strength Upper Extremity Strength Assessment Within Functional Limits OT- Coordination Assessment Upper Extremity Finger to Nose Test Within Functional Limits OT-Muscle Tone Assessment Muscle Tone WNL Yes M9 OT- IP Assessment and Plan Start: 09/10/21 16:50 Freq: Status: Discharge Protocol: Document 09/11/21 09:12 [facility] (Rec: 09/11/21 12:42 [facility] [id number]) OT Summary Assessment and Plan Potential Rehabilitation Potential Excellent Analytic Complexity at Evaluation Moderate Summary OT Impairments Functional Cognition Progress Towards Goals Progressing Toward Goals Assessment Summary Pt still has impaired short term memory and problem solving skilled for SLUMS and scored 19/30 . HOwever on [employer] improved drastically from 147seconds to 69 seconds. Pt states he did not sleep well due to not having his CPAP here in the hospital and feel that he has more head pressure today. Encouraged pt not to push to hard , limit screen time, try to get outside, and if things do not improve may be a good idea to have outpt WATER FILTRATION TECHNICIAN or OT. Pt to go home with his mother to stay home with him from work until Tuesday. Discharge Recommendations OT Discharge Recommendations Home with / Assist Available Other Discharge Recommendations If pt does not improve cognitively possible outpt WATER FILTRATION TECHNICIAN or OT may be needed. Transportation Needs at Discharge Private Vehicle
--- NOTE | 2021-09-11 09:17 | PM.DS.1 ---
History of Present Illness History of Present Illness Date Patient Seen: 09/11/21 Chief complaint: Fall backward 5 ft,+LOC,no thinners Narrative: 41 y.o man sp 5 ft fall with a concussion no loss of consciousness. Workup CTH negative for intracranail bleeding, CXR neg, CT C spine negative. He was admitted for observation. Discharge Providers Provider Date of admission: 09/09/21 17:50 Discharge Date: 09/11/21 Primary care physician: Ye Cardoza MD Consults: 09/09/21 20:45 Consult to Physical Therapy Evaluate & Treat Comment: [facility] Physician Instructions: Evaluate and Treat 09/10/21 08:24 Consult to Occupational Therapy Evaluate & Treat Comment: concussion Physician Instructions: Evaluate and treat Discharge provider: Itz Bowman MD Summary Hospital Course Discharge Diagnosis: sp fall concussion Hospital Course: Here for observation sp fall with concussion no brain bleed. Congnition improved significantly since admission. Currently alert and oriented x 3. Exam Vital Signs (past 8 hours): - 09/11/21 05:20 Temperature 97.6 F Pulse Rate 89 Respiratory Rate 14 Blood Pressure 100/60 Pulse Oximetry 98 Oxygen Delivery Method Room Air Oxygen Flow Rate 0 Narrative Exam Narrative: Gen-Adult man alert and oriented x 3 Chest-Non labored resp Abdomen-Soft non tender Ext-WWP Objective Labs Result Diagrams: 09/09/21 15:16 09/09/21 15:16 [facility] Medical History Allergic conjunctivitis and rhinitis (~08/05/16) Chronic right shoulder pain (08/05/16) Depression (08/05/16) Essential hypertension (08/05/16) Excessive daytime sleepiness 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 Obesity (BMI 30-39.9) Obstructive sleep apnea syndrome (2012) Pure hypercholesterolemia (08/05/16) Surgical History H/O splenectomy History of nasal septoplasty Family History Family/Other Dementia Alcohol abuse Father Substance abuse Mother Depression Substance abuse Social History marital status: details: lives in [place] household members: family and children caregiver/support person: No housing: house occupational status: employed Previous occupational history: [employer] Smoking Status: Never smoker alcohol intake: current substance use type: does not use Discharge Plan Discharge Plan Patient Disposition: Home Provider Discharge Comment: -You sustained a concussion there was no evidence of intra cranial bleed -Follow up with your primary care provider next week -No driving or operating machinery until released by your primary care provider -Return to the emergency department for worsening headache, vision changes, nausea, vomiting Discharge orders & Medications Prescriptions: Continued modafinil 200 mg tablet 200 mg PO DAILY Qty: 30 2RF lisinopril 40 mg PO DAILY 0RF (DME) Respironics DreamStation See Rx Instructions .ROUTE .MEDSUPPLY 0RF Rx Instructions: CPAP DreamStation Min Pressure: 10 Max Pressure: 18 DME: [employer] Follow up/Referrals: Ye Cardoza MD [Primary Care Provider] - Diet/Activity/Treatments Diet: Diet as Tolerated Skin/Wound/Dressing Care Report to your healthcare provider any signs of infection, such as:: increased pain Discharge Data Primary Care Provider: Ye Cardoza Attending Provider: Twila Chau VTE Deep Vein Thrombosis/Pulmonary Embolism Present on Admission: No
[2021-09-11] MEDS: lisinopriL 20 MG TABLET 40 MG PO (09:26)
[2021-09-11 09:38] VITALS: O2SAT 95
== END 2021-09-11 11:21 | disposition home or self-care (01) ==
LOC: ED 17:49 → AC 18:46
PROVIDERS: Admitting Provider Surgery; Emergency Provider Emergency Medicine; PCP Family Medicine; Referring Provider Emergency Medicine; Visit Provider Surgery
DX: S06.0X1A Concussion with loss of consciousness of 30 minutes or less, initial encounter (principal); W17.89XA Other fall from one level to another, initial encounter; Y93.H3 Activity, building and construction; Y92.62 Dock or shipyard as the place of occurrence of the external cause; Y99.0 Civilian activity done for income or pay; R40.2412 Glasgow coma scale score 13-15, at arrival to emergency department; R41.0 Disorientation, unspecified; R41.3 Other amnesia; Z20.822 Contact with and (suspected) exposure to COVID-19
CPT/HCPCS: 36415; 70450; 71045; 72125; 80053; 80305; 80320; 81001; 83690; 85025; 85610; 85730; 86850; 86900; 86901; 87635; 94760; 96361; 96374; 97129; 97130; 97161; 97166; 99217; 99219; 99285; C9803; G0378; J1885

== ENCOUNTER → 2022-01-20 12:45 | Outpatient (CLI) | payer OTHER, MEDICAID, SELFPAY ==
[2021-09-09 19:26] VITALS: BMI 35.1
[2022-01-20 14:34] LABS: Add Manual Diff / Slide Review NO; Basophils Absolute Auto 0 /uL (0-100); Basophils Percent Auto 0.6 % (0-2); Eosinophils Absolute Auto 100 /uL (0-450); Eosinophils Percent Auto 1.1 % (2-4); Hematocrit 42.4 % (41-53); Lymphocytes Absolute Auto 2200 /uL (1100-4500); Lymphocytes Percent Auto 34.1 % (25-40); Mean Corpuscular HGB Conc 35.3 % (30-36); Mean Corpuscular Hemoglobin 32.6 PG (26-34); Mean Corpuscular Volume 92.3 fL (80-100); Monocytes Absolute Auto 600 /uL (0-900); Monocytes Percent Auto 9.3 % (3-14); Neutrophils Absolute Auto 3500 /uL (1500-7000); Neutrophils Percent Auto 54.9 % (50-75); Platelet Count 244 X10^3/uL (150-400); Red Blood Cell Count 4.59 X10^6/uL (4.5-5.9); Red Cell Distribution Width 13.9 % (11.6-14.8); White Blood Cell Count 6.3 X10^3/uL (4.5-11.0)
[2022-01-20 14:58] LABS: Alanine Aminotransferase 28 IU/L (<50); Albumin 4.6 g/dL (3.5-5.0); Albumin Globulin Ratio 1.6 (1.0-2.8); Alkaline Phosphatase 65 U/L (38-126); Aspartate Aminotransferase 31 IU/L (17-59); BUN Creatinine Ratio 21.4 (6-22); Bilirubin Total 1.3 mg/dL (0.2-1.3); Blood Urea Nitrogen 22 mg/dL (9-20); Calcium 9.4 mg/dL (8.4-10.2); Carbon Dioxide 24 mmol/L (22-32); Chloride 101 mmol/L (98-107); Estimated Glomerular Filt Rate > 60 mL/min (>60); Globulin 2.9 g/dL (1.7-4.1); Glucose 81 mg/dL (70-100); HEMOLYSIS < 15 (0-50); Potassium 4.5 mmol/L (3.4-5.1); Sodium 137 mmol/L (137-145); Total Protein 7.5 g/dL (6.3-8.2)
== END ==
PROVIDERS: PCP Family Medicine; Referring Provider Family Medicine; Visit Provider Family Medicine
DX: I10 Essential (primary) hypertension (principal)
CPT/HCPCS: 36415; 80053; 85025